=== PATIENT | female | born 1965 | race Caucasian/White ===

== ENCOUNTER 2016-05-27 12:56 | Day surgery (SDC) | payer OTHER ==
[~2016-05-27 12:56] MED LIST: RINGER'S SOLUTION,LACTATED 1,000 ML IV PRN
--- OUTSIDE RECORDS SUMMARY | 2016-05-27 13:00 | XMS REPORT | Continuity of Care Document ---
:1965 Author Organization [facility] [place] [address] Care Team Providers Name Role Phone Unavailable Primary Care Provider Unavailable Source Comments This disclosure is being made pursuant to the [employer] program and maynot contain all information available regarding this patient.[facility] Active Allergies and Adverse Reactions Not on File Current Medications Be aware that medications may not be up to date as of this document. Alwaysverify current medications with the patient. Not on file Active Problems Not on file Social History Tobacco Use Types Packs/Day Years Used Date Never Assessed Plan of Care Health Maintenance Due Date Last Done Comments Retired-Pertussis Vaccine Adult 10/24/1983 Retired-Tetanus Vaccine Adult 10/24/1983 Pap Smear 1985 Mammogram 2004 Colonoscopy 2014 Well Adult Visit 2014 Retired-INFLUENZA VACCINE 11/01/2014 Results from Last 3 Months Not on file
--- OUTSIDE RECORDS SUMMARY | 2016-05-27 13:00 | XMS REPORT | Continuity of Care Document ---
:1965 Author Organization [facility] ([facility]) Address [address] [place] [address] Phone [phone] Care Team Providers Name Role Phone Lucas Castro Primary Care Provider [phone] Source Comments This disclosure is being made pursuant to the Care Everywhere program, applicable federal and state laws, and may not contain all informaitonavailable regarding this patient.[facility] ([facility]) Active Allergies and Adverse Reactions Allergen Noted Date Severity Reactions Comments Betadine Prepstick 12/09/2014 Rash Penicillin 12/09/2014 Rash Tetracycline 12/09/2014 Rash Current Medications Prescription Sig. Disp. Refills Start Date End Date Status CYCLOBENZAPRINE 10 mg 20 mg 08/30/2014 Active tablet PANTOPRAZOLE 40 mg EC Take 40 mg by 09/22/2014 Active tablet mouth daily ONDANSETRON 4 mg Take 4 mg by 07/20/2014 Active disintegrating tablet mouth as needed LEVOTHYROXINE 50 mcg tablet Take 50 mcg by 07/06/2014 Active mouth daily furosemide 40 mg tablet Take 40 mg by Active mouth daily SERTraline 50 mg tablet Take 50 mg by Active mouth daily potassium chloride 10 mEq Take 20 mEq by 01/30/2015 Active XR tablet mouth daily buPROPion (WELLBUTRIN XL) 01/30/2015 Active 150 mg extended release tablet 24 hour RESTASIS 0.05 % ophthalmic 12/19/2014 Active emulsion diazepam 10 mg tablet 01/28/2015 Active milnacipran (SAVELLA) 25 mg Take 25 mg by Active tablet mouth 2 times daily Active Problems Problem Noted Date Morbid obesity 02/09/2015 Dizziness 01/31/2015 Lightheadedness 01/31/2015 Depression Hyperlipidemia Hypothyroidism Social History Tobacco Use Types Packs/Day Years Used Date Former Smoker Cigarettes 3 15 Smokeless Tobacco: Never Used Alcohol Use Drinks/Week oz/Week Comments No Last Filed Vital Signs Vital Sign Reading Time Taken Blood Pressure 120/80 03/09/2015 1:03 PM [employer]EF[employer] Pulse 90 03/09/2015 1:03 PM [employer] Temperature 36.8 C (98.2 F) 01/31/2015 2:18 PM [employer]ER Respiratory Rate - - Height 1.676 m (5' 5.98") 03/09/2015 1:03 PM [employer] Weight 117.482 kg (259 lb) 03/09/2015 1:03 PM [employer]ER Body Mass Index 41.82 03/09/2015 1:03 PM [employer]EF[employer]ER Oxygen Saturation - - Plan of Care Health Maintenance Due Date Last Done Comments HCV Screening 1965 Hepatitis B Vaccine (1 of 3 - Primary Series) 1965 Tdap Vaccine 10/24/1975 Lipid Disorder Screening 1982 MMR Vaccine 1982 Td Vaccine 1982 Cervical Cancer Screening 1994 Mammogram 2004 Colonoscopy 2014 Influenza Vaccine: Seasonal (#1) 10/02/2015 Results from Last 3 Months Not on file
[2016-05-27] MEDS ORDERED: RINGER'S SOLUTION,LACTATED 1,000 ML IV ONE (14:12)
[2016-05-27] MEDS ORDERED: RINGER'S SOLUTION,LACTATED 1,000 ML IV PRN (15:23)
[2016-05-27 16:15] VITALS: BP 125/82
--- NOTE | 2016-05-27 17:36 | OR ---
Operative Report - Dictated Report Narrative: OPERATIVE REPORT DATE OF OPERATION: 05/27/2016 PREOPERATIVE DIAGNOSIS: No prior dedicated colon studies POSTOPERATIVE DIAGNOSIS: Significant sigmoid diverticulosis OPERATION: Colonoscopy SURGEON: Tona Sands MD ANESTHESIA: MAC Brad Church CRNA INDICATIONS FOR PROCEDURE: The patient is a 50-year-old female referred for initial colon screening by Dr. Castro. There is no family history of colon cancer. She moves her bowels twice a week FINDINGS: Very significant sigmoid diverticulosis with capacious proximal colon , otherwise normal colonoscopy to the cecum. NARRATIVE OF PROCEDURE: The patient was identified in the holding area, and prior to the administration of anesthetic, a multidisciplinary timeout was observed. With the patient in the left lateral position and after the administration of intravenous sedation, the perineum was inspected. There was no evidence of pilonidal disease or skin breakdown. The external appearance of the anus was normal. Sphincter tone was good. The flexible fiberoptic colonoscope was inserted into the rectum which was insufflated with air. The rectal mucosa and submucosal vascular pattern appeared normal, the prep was seen to be complete. The scope was advanced through the sigmoid colon, which was very tortuous and contained numerous large diverticular openings. There was no evidence of inflammation but several openings were impacted with stool. Scope was advanced up the descending colon, and around the splenic flexure where the triangular haustral architecture of the transverse colon was seen. The scope was advanced across the transverse colon, around the hepatic flexure to the cecum, where the confluence of tenia and the ileocecal valve were identified. The mucosa at this level appeared normal. The scope was then slowly withdrawn in a circular fashion so that all aspects of colonic mucosa were inspected. The proximal colon was very capacious in character. The haustral architecture appeared well preserved throughout with no evidence of external compression. The mucosa and submucosal vascular pattern appeared normal, specifically there was no gross evidence to suggest colitis or inflammatory bowel disease and no AV malformations were seen. The diverticulosis was moderate to marked in degree and confined primarily to the sigmoid colon. No polyps were encountered. The scope was gradually withdrawn to the level of the rectum. As much insufflated air as possible was removed. The scope was withdrawn from the patient and the procedure terminated. The patient tolerated the anesthetic and procedure well without complication and was transferred back to the ambulatory surgery area awake and in stable condition. The patient remained stable throughout a period of postoperative observation. She denied abdominal discomfort, was able to tolerate by mouth intake, and was up without assistance. I shared the operative findings with the patient and her , and she was given copies of the photographs which appear in the medical record. She was discharged home with instructions not to engage in hazardous activity today, but may resume normal activity tomorrow, and advance diet as tolerated. She is to continue those medications as listed in the history and physical exam. The patient volunteered that Benefiber as helped her bowel habit. A pamphlet on diverticular disease was reviewed with her and given to her. It was suggested that she continue Benefiber and titrate as needed to regulate her bowel habit, given her degree of diverticulosis. RECOMMENDATION: Colon surveillance in 10 years depending upon findings and symptoms Reviewed and electronically signed
== END 2016-05-27 12:57 | disposition home or self-care (01) ==
LOC: AMB 12:56
PROVIDERS: ATTEND Surgery
PROC: 0DJD8ZZ Inspection of Lower Intestinal Tract, Via Natural or Artificial Opening Endoscopic (ICD-10-PCS; principal; 2016-05-27 15:15)
DX: Z12.11 Encounter for screening for malignant neoplasm of colon (principal); K57.30 Diverticulosis of large intestine without perforation or abscess without bleeding; E78.5 Hyperlipidemia, unspecified; E03.9 Hypothyroidism, unspecified; F32.9 Major depressive disorder, single episode, unspecified; F17.210 Nicotine dependence, cigarettes, uncomplicated; Z68.36 Body mass index [BMI] 36.0-36.9, adult